=== PATIENT | female | born 1965 | race Caucasian/White ===

== ENCOUNTER 2025-06-23 05:45 | Day surgery (SDC) | payer OTHER ==
[2025-06-22 11:28] LABS: Sqamous Epithelial None Seen /HPF (None Seen); Urine Crystals Unidentified Few /HPF (None Seen); Urine Culture Reflex Order REFLEXED; Urine Microscopic Reflex YN ORDER UMIC; Urine Yeast (Budding) Occasional /HPF (None Seen)
[2025-06-23] MEDS ORDERED: MAGNESIUM SULFATE 1 gm IVPB 1 GM/100 ML BAG IV ONE (06:23)
[2025-06-23] MEDS ORDERED: DEXMEDETOMIDINE HCL 200 MCG/2 ML VIAL ONE (06:23)
[2025-06-23] MEDS ORDERED: MORPHINE SULFATE/PF 1 MG/ML (10 ML AMP) ONE (06:23)
[2025-06-23] MEDS ORDERED: BUPIVACAINE 0.75% (PF) 2 ML SP ONE (06:23)
[2025-06-23] MEDS ORDERED: KETOROLAC 30 MG/ML INJ ONE (06:24)
[2025-06-23] MEDS: TRANEXAMIC ACID 1,000 MG/10 ML VIAL IV ONE (06:24)
[2025-06-23] MEDS ORDERED: KETAMINE HCL IN 0.9 % NACL 50 MG/5 ML SYRINGE IV ONE (06:24)
[2025-06-23] MEDS ORDERED: ONDANSETRON 4 MG/2 ML VIAL ONE (06:24)
[2025-06-23] MEDS ORDERED: LIDOCAINE 2% MPF 5 ML VIAL ONE ×3 (06:24→07:33)
[2025-06-23] MEDS ORDERED: FENTANYL CITR 100 MCG/2 ML ONE (06:24)
[2025-06-23] MEDS ORDERED: MIDAZOLAM HCL 2 MG/2 ML INJ ONE ×2 (06:24→07:01)
[2025-06-23] MEDS ORDERED: LIDOCAINE 1% MPF 5 ML VIAL ONE (06:24)
[2025-06-23] MEDS ORDERED: EPINEPHRINE 1 MG/ML VIAL ONE (06:25)
[2025-06-23] MEDS: NA CHLORIDE 0.9% 1,000 ML ONE (06:25)
[2025-06-23] MEDS: Ringers Lactate 1,000 ML IV ONE ×2 (06:34→08:00)
[2025-06-23] MEDS: GABAPENTIN 100 MG CAP ONE (06:39)
[2025-06-23] MEDS: CELECOXIB 100 MG CAPSULE ONE (06:39)
[2025-06-23] MEDS: Oxycodone HCl/Acetaminophen 5/325 MG TAB ONE (06:39)
[2025-06-23] MEDS: ACETAMINOPHEN 500 MG TAB ONE (06:39)
[2025-06-23] MEDS ORDERED: NS 0.9% VIAL 10 ML ONE ×2 (06:42→08:14)
[2025-06-23] MEDS ORDERED: Phenylephrine HCl 10 MG/ML 1 ML VIAL ONE (06:44)
[2025-06-23] MEDS: CEFAZOLIN SODIUM 2 GM/VIAL ONE (06:58)
[2025-06-23] MEDS ORDERED: NS 0.9% VIAL 20 ML ONE (07:37)
--- NOTE | 2025-06-23 09:20 | P.BOP ---
Preoperative diagnosis: left hip arthritis Postoperative diagnosis: same Primary procedure: left kiki Estimated blood loss: 100ccs Anesthesia: General Transferred to: Recovery Room Condition: Good
[2025-06-23] MEDS ORDERED: ONDANSETRON 4 MG/2 ML VIAL IV PRN (09:21)
[2025-06-23] MEDS ORDERED: DOCUSATE NA 100 MG CAP PO PRN (09:21)
[2025-06-23] MEDS ORDERED: METOCLOPRAMIDE 10 MG/2mL INJ IV PRN (09:57)
[2025-06-23 10:18] LABS: Hematocrit 33.4 % (36.0-45.0); Hemoglobin 11.7 g/dL (12.0-15.0)
[2025-06-23 11:16] VITALS: BMI 24.3
--- NOTE | 2025-06-23 11:31 | RAD REPORT ---
EXAMINATION: Hip Left 1 View CLINICAL INDICATION: Female, 59 years old. HS MAIN LT TOTAL HIP TECHNIQUE: 1 view radiograph of the left hip were obtained. COMPARISON: No prior exam. FINDINGS: No evidence of fracture or dislocation. Operative changes of left hip arthroplasty. Acetabu lar and femoral stem components in place. Other metallic objects in the field limits evaluation. Alignment is otherwise unremarkable. IMPRESSION: Satisfactory intraoperative appearance of the left hip arthroplasty acetabular and femoral stem compo nents.
--- NOTE | 2025-06-23 15:46 | OP ---
Date of Procedure: 06/23/2025 Surgeon: Wang Blake MD Preoperative Diagnosis: Left hip severe arthritis. Postoperative Diagnosis: Left hip severe arthritis. Procedure: Left total hip arthroplasty using the Shruthi system. Estimated Blood Loss: 100 cc. Complications: There were no complications. Indications For Operation: Ms. Weiss is a 59-year-old female who has debilitating pain related to her left hip. She walks with severe antalgia and assistive device. Conservative measures have not b een helpful and risks, benefits, and alternatives to different methods of treating this were discusse d with the patient. She selects total hip arthroplasty and the specific risks associated with this h ave been discussed with her as well. She says she understands things as presented and wishes to proc eed. Description Of Procedure: The patient was taken to the operating room, placed in the supine position . General anesthesia was easily obtained by Anesthesia staff. Following this, she was rolled right side down and appropriately positioned using hip positioners and an axillary roll was used. Followin g this, her left lower extremity was then prepped and draped in usual sterile fashion for procedure. A standard posterolateral incision was taken down carefully through skin and soft tissues. Meticulo us hemostasis being maintained using Bovie electrocautery. There was a layer of adipose tissue, whic h was gently divided and the fascia was encountered. A small stab wound was made in the fascia, and the gluteal tendon was palpated to ensure the correct position. Following this, the fascial incision was then taken up until near the tip of the greater trochanter, where gluteus mary muscles were e ncountered. These were then spread using finger pressure. Sciatic nerve was palpated and protected as the Charnley was placed. The external rotators and capsule were then removed from the posterior a spect of the hip and tagged for later repair. The hip itself was examined and there were found to be loose bodies within the joint, which were removed and the hip was dislocated. It was found to be ba re in several areas and definitely abnormally shaped. A standard neck cut was then performed and the head was removed and sized using ring gauges. Attention was then turned to the acetabulum. The staci tabulum does have a significant amount of soft tissue, which was cleared. This followed by clearing of the labrum. There does appear to be an anterior inferior osteophyte, which was seen. After this, it was then reamed in a standard fashion to a size 51. Size 52 cup appeared to be appropriate. It was then placed in a standard fashion. Attention was then turned to the femur, and box printer was us ed to lateralize. The canal finding reamer was used. It was then broached up to a size 2. Size 2 a ppeared to be fairly tight, and she does have quite thick cortical bone. Decision was made to take a n x-ray at this time, which revealed that the cup appeared to be in appropriate position, but the emely m may be slightly undersized. Decision was made to broach this out to a 3, which was then done. The liner was then placed in the acetabulum in a standard fashion, and the final stem being a size 3 was then placed. After this, it was then trialed with a standard and appeared to be very stable to full flexion, adduction, and internal rotation to at least 45-60 degrees. Did have full extension. Did not feel that it was too long. This was then replaced with the final standard ball, which was gently tapped in place. It was then relocated and stable in above areas. After this, the wound was copiou sly irrigated. The external rotators and capsule were then repaired back to the greater trochanter v ia bone tunnels. It was again irrigated and the fascia was closed in a watertight fashion using heav y Vicryl sutures. It was again irrigated. The skin was closed using Vicryl sutures followed by stap les. The patient was then placed in an Aquacel dressing, awakened, and taken to the recovery room in good condition. There were no complications. SE/MODL Voice ID: [id number] Report ID: [id number]
[2025-06-23] MEDS: CEFAZOLIN 1 GM in NA CHLORIDE 0.9% 50 ML IVPB SCH (16:46)
[2025-06-23 17:50] LABS: Hematocrit 35.5 % (36.0-45.0); Hemoglobin 12.1 g/dL (12.0-15.0)
[2025-06-23] MEDS: HYDROCODONE/APAP 7.5/325 MG TAB PO PRN (19:49)
[2025-06-23] MEDS: DIPHENHYDRAMINE 50 MG/ML VIAL IV PRN (22:48)
[2025-06-24 07:21] LABS: Hematocrit 28.6 % (36.0-45.0); Hemoglobin 9.6 g/dL (12.0-15.0)
[2025-06-24] MEDS: ENOXAPARIN 40 MG/0.4 ML SQ SCH (08:20)
[2025-06-24] MEDS: NA CHLORIDE 0.9% 1,000 ML IV ONE (09:28)
[2025-06-24] MEDS ORDERED: NA CHLORIDE 0.9% 1,000 ML ONE (09:28)
[2025-06-24 10:13] LABS: Hematocrit 26.2 % (36.0-45.0); Hemoglobin 8.9 g/dL (12.0-15.0)
[2025-06-24] MEDS: MIDODRINE HCL 5 MG TABLET PO SCH (11:33)
--- NOTE | 2025-06-24 13:19 | P.CNS ---
History of Present Illness: Tawny Weiss is a 59 year old female with Pmhx hypothyroidism, Sinus bradycardia, and hyperlipidemia who has been admitted to the hospital for Left total hip arthroplasty performed on 06/23/[address] Blake. On morning rounds, she had worked with Physical Therapy and became hypotensive with nausea and lightheadedness. H/H decreased on repeat labs but dressing remains CDI, one liter NS bolus given and blood pressure with slight improvement low. Will repeat H/H in the morning, started on midodrine TID and will continue to evaluate. Dr. Vences was consulted for medical management. Allergies No Known Allergies Allergy (Unverified 06/19/25 12:30) Home Medications: Aspirin/Caffeine [Bc Pain Relief Powder Packet] 1 packet PO PRN PRN 06/19/25 Calcium Carbonate [Calcium] 1 tab PO DAILY 06/19/25 Levothyroxine [Synthroid*] 25 mcg PO DAILY 06/19/25 Rosuvastatin [Crestor*] 30 mg PO DAILY 06/19/25 Vitamin D [Drisdol*] 1.25 mg PO DAILY 06/19/25 - Past Medical/Surgical History Diabetic: No -: hypothyroidism -: hyperlipidemia -: sinus bradycardia -: R wrist surgery x4 -: R thumb surgery x1 -: L wrist surgery x1 -: umbilical hernia repair x2 -: cholecystectomy -: L knee meniscus repair x1 -: spinal repair of 2 herniated discs -: L hip Arthroplasty (current) - Social History Alcohol use: No CD- Drugs: No Caffeine use: No Place of Residence: Home Review of Systems 10-point ROS is otherwise unremarkable Physical Examination Temp Pulse Resp BP Pulse Ox 97.9 F 68 16 113/53 L 98 06/24/25 12:00 06/24/25 12:00 06/24/25 12:00 06/24/25 12:06/24/25 12:00 General: Alert, In no apparent distress, Oriented x3 HEENT: Atraumatic, Normocephalic, PERRLA Neck: Supple, 2+ carotid pulse no bruit Respiratory: Clear to auscultation bilaterally, Normal air movement Cardiovascular: Normal pulses, Regular rate/rhythm, Normal S1 S2 Capillary refill: <2 Seconds Gastrointestinal: Normal bowel sounds, Soft and benign Musculoskeletal: Other (Left hip tenderness, Dressing CDI) Integumentary: Other (Surgical incision to left hip) Laboratory Data (last 24 hrs) 06/24/25 06/24/25 06/23/25 10:07 06:57 17:32 Hgb 8.9 L 9.6 L D 12.1 Hct 26.2 L 28.6 L 35.5 L Conclusions/Impression: Assessment and Plan Left total hip arthroplasty Arthritis -Dr. Blake -Pain control -PT -Perioperative antibiotics per Dr. Blake Hypotensive suspect 2/2 blood loss -1 LNS bolus given -Midodrine TID - monitor H/H closely Blood loss anemia -monitor H/H closely -Blood transfusion PRN -discussed this in detail -Type and screen Hypothyroidism HLD Sinus bradycardia -continue home medications as appropriate -Continuous telemetry DVT ppx SCD Full code LOS 2 days Time Spent Managing Pts care (In Minutes): 60
[2025-06-24 19:33] LABS: Absolute Lymphocytes (CBC) 2.4 K/uL (0.7-4.9); Hematocrit 23.3 % (36.0-45.0); Hemoglobin 8.0 g/dL (12.0-15.0); MCH 28.7 pg (27.0-35.0); MCHC 34.4 g/dL (32.0-36.0); MCV 83.4 fL (80-100); MPV 8.5 fL (7.6-11.3); Nucleated RBC Absolute Count 0.0 (0-0); Nucleated Red Blood Cells % 0.1 % (0-0); RBC Red Blood Cell Count 2.79 M/uL (3.86-4.86); White Blood Count 12.10 thou/uL (4.3-10.9)
[2025-06-25] MEDS: LEVOTHYROXINE SOD 0.025 MG TAB PO SCH (05:30)
[2025-06-25 05:43] LABS: Absolute Lymphocytes (CBC) 2.6 K/uL (0.7-4.9); Hematocrit 23.5 % (36.0-45.0); Hemoglobin 8.1 g/dL (12.0-15.0); MCH 29.0 pg (27.0-35.0); MCHC 34.6 g/dL (32.0-36.0); MCV 83.9 fL (80-100); MPV 8.5 fL (7.6-11.3); Nucleated RBC Absolute Count 0.0 (0-0); Nucleated Red Blood Cells % 0.1 % (0-0); RBC Red Blood Cell Count 2.80 M/uL (3.86-4.86); White Blood Count 9.30 thou/uL (4.3-10.9)
[2025-06-25 06:06] LABS: PT Prothrombin Time 12.0 SECONDS (10-13.0); PTT, Activated Partial Thromb 28.3 SECONDS (27.2-37.4); Protime INR 1.06
[2025-06-25 06:42] LABS: ALT/SGPT 21.0 U/L (13-56); AST/SGOT 20.0 U/L (15-37); Albumin 2.6 g/dL (3.4-5.0); Albumin/Globulin Ratio 1.1 (1.1-1.8); Alkaline Phosphatase 79.0 U/L (45-117); Anion Gap 5.5 mEq/L (5.0-15.0); BUN Blood Urea Nitrogen 18.0 mg/dL (7-18); Globulin 2.4 g/dL (2.3-3.5); Glucose Level 97.0 mg/dL (74-106); Iron 20.0 ug/dL (50-170); Magnesium 2.1 mg/dL (1.6-2.4); Potassium 4.5 mEq/L (3.5-5.1)
[2025-06-25 07:10] LABS: Percent Reticulocyte Count 1.29 % (0.4-2.05)
[2025-06-25] MEDS: ROSUVASTATIN 10 MG TAB PO SCH (09:09)
[2025-06-25] MEDS: CALCIUM CARBONATE 500 MG TAB PO SCH (09:09)
[2025-06-25 09:21] VITALS: O2SAT 97
[2025-06-25] MEDS: CYANOCOBALAMIN 1000MCG/ML INJ IM ONE (11:43)
[2025-06-25 12:33] VITALS: BP 129/60; TEMP 98.3
--- NOTE | 2025-06-25 14:19 | P.DS ---
Discharge Date: 06/25/25 Disposition: ROUTINE DISCHARGE Discharge Condition: GOOD Brief History of Present Illness: Diagnosis Left total hip arthroplasty Arthritis Hypotensive suspect 2/2 blood loss Blood loss anemia Iron deficiency anemia suspect pernicious anemia Hypothyroidism HLD Sinus bradycardia Consult note 06/24/25 Tawny Weiss is a 59 year old female with Pmhx hypothyroidism, Sinus bradycardia, and hyperlipidemia who has been admitted to the hospital for Left total hip arthroplasty performed on 06/23/[address] Blake. On morning rounds, she had worked with Physical Therapy and became hypotensive with nausea and lightheadedness. H/H decreased on repeat labs but dressing remains CDI, one liter NS bolus given and blood pressure with slight improvement low. Will repeat H/H in the morning, started on midodrine TID and will continue to evaluate. Dr. Vences was consulted for medical management. Hospital Course: Tawny was admitted for left total hip arthroplasty with Dr. Blake. Hospitalist team was consulted for medical management. She experienced hypotension and anemia which has been identified as blood loss anemia, iron deficiency anemia, suspected pernicious anemia. Hypotension was regulated with IV fluids and midodrine. Vitamin B and iron were given this admission. Dr. Blake discharged on 06/25 and Martin, ferrous gluconate, midodrine, vitamin B12 were prescribed. She will need to follow-up with Dr. Blake in his office. Tawny was seen on morning rounds, hemodynamically stable, tolerated ambulation with physical therapy, and ready for discharge home with family support.social work has arranged for her to continue physical therapy with [facility] outpatient [facility] services. General: Alert and Oriented x3, NAD HEENT: Atraumatic, Normocephalic, PERRLA Neck: Supple, 2+ carotid pulse no bruit Respiratory: Clear to auscultation bilaterally, Normal air movement Cardiovascular: Normal pulses, RRR, Normal S1 S2 Gastrointestinal: Normal bowel sounds, Soft and benign Musculoskeletal: Other (Left hip tenderness, Dressing CDI), 2+ peripheral pulses Integumentary: Other (Surgical incision to left hip) Vital Signs/Physical Exam: Temp Pulse Resp BP Pulse Ox 98.3 F 70 16 129/60 99 06/25/25 12:06/25/25 12:06/25/25 12:06/25/25 12:00 06/25/25 12:00 Laboratory Data at Discharge: WBC 9.30 thou/uL (4.3-10.9) 06/25/25 05:25 Hgb 8.1 g/dL (12.0-15.0) L 06/25/25 05:25 Hct 23.5 % (36.0-45.0) L 06/25/25 05:25 Plt Count 200 thou/uL (152-406) 06/25/25 05:25 PT 12.0 SECONDS (10-13.0) 06/25/25 05:25 INR 1.06 06/25/25 05:25 APTT 28.3 SECONDS (27.2-37.4) 06/25/25 05:25 Sodium 145 mEq/L (136-145) 06/25/25 05:25 Potassium 4.5 mEq/L (3.5-5.1) 06/25/25 05:25 BUN 18 mg/dL (7-18) 06/25/25 05:25 Creatinine 0.91 mg/dL (0.55-1.02) 06/25/25 05:25 Glucose 97 mg/dL (74-106) 06/25/25 05:25 Magnesium 2.1 mg/dL (1.6-2.4) 06/25/25 05:25 Total Bilirubin 0.2 mg/dL (0.2-1.0) 06/25/25 05:25 AST 20 U/L (15-37) 06/25/25 05:25 ALT 21 U/L (13-56) 06/25/25 05:25 Alkaline Phosphatase 79 U/L (45-117) 06/25/25 05:25 Home Medications: Aspirin/Caffeine [Bc Pain Relief Powder Packet] 1 packet PO PRN PRN 06/19/25 Calcium Carbonate [Calcium] 1 tab PO DAILY 06/19/25 Levothyroxine [Synthroid*] 25 mcg PO DAILY 06/19/25 Rosuvastatin [Crestor*] 30 mg PO DAILY 06/19/25 Vitamin D [Drisdol*] 1.25 mg PO DAILY 06/19/25 Cyanocobalamin/Cobamamide [Vitamin B-12 5,000 Mcg Tab Sl] 1 each SL DAILY #30 tab 06/25/25 Ferrous Gluconate [Fergon] 240 mg PO BID #60 tablet 06/25/25 Hydrocodone 7.5/APAP 325 [Martin 7.5/325 mg*] 1 tab PO Q6HP PRN #30 tab 06/25/25 Midodrine HCl [Proamatine*] 5 mg PO TID #30 tab 06/25/25 New Medications: Hydrocodone 7.5/APAP 325 [Martin 7.5/325 mg*] 1 tab PO Q6HP PRN #30 tab PRN Reason: Pain Scale 8-10 (Severe) Ferrous Gluconate [Fergon] 240 mg PO BID #60 tablet Midodrine HCl [Proamatine*] 5 mg PO TID #30 tab Cyanocobalamin/Cobamamide [Vitamin B-12 5,000 Mcg Tab Sl] 1 each SL DAILY #30 tab Physician Discharge Instructions: -DC IV and DC home -Follow-up with PCP in 1 to 2 weeks -Follow-up with orthopedics in 1 to 2 weeks -Follow-up with gastroenterology in 2 to 4 weeks to workup B12 deficiency with anemia -Please call Dr. Vences at [phone] if any questions regarding hospital stay -Please call nursing station at [phone] if any nursing or medication questions -Return to the emergency room if symptoms worsen -- Please get labs to check B12 level, iron level, CBC in 2 to 4 weeks Diet: Regular Activity: Fall precautions Followup: Wang Blake MD [ACTIVE - CAN ADMIT] - 1-2 Weeks Denisha Phillips FNP [Primary Care Provider] - If your Condition Changes
[2025-06-26] MEDS ORDERED: SOD FERRIC GLUC COMPLX/SUCROSE 125 MG in NA CHLORIDE 0.9% 100 ML IV SCH (09:00)
== END 2025-06-25 14:42 | disposition home or self-care (01) ==
LOC: OR 05:45 → 2ND 09:21 → OR 06-25 14:42
PROVIDERS: ATTEND Orthopaedic Surgery
PROC: 0SRB0JA Replacement of Left Hip Joint with Synthetic Substitute, Uncemented, Open Approach (ICD-10-PCS; principal; 2025-06-23 07:00)
DX: M16.12 Unilateral primary osteoarthritis, left hip (principal); I95.81 Postprocedural hypotension; R11.0 Nausea; R42 Dizziness and giddiness; D50.0 Iron deficiency anemia secondary to blood loss (chronic); E03.9 Hypothyroidism, unspecified; R00.1 Bradycardia, unspecified; E78.5 Hyperlipidemia, unspecified
CPT/HCPCS: 27130; 93005; 87088; 85025; 81001; 87086; 36415 ×2; 83735; 85610; 85044; 88304; 88311; 85730 ×2; 85018 ×2; 85014 ×2; 82607; 83540; 80053; 73501; 97116 ×2; 97161; 97530 ×2; J3490; C1776 ×5; J3420; J3475; A4216 ×3; J2704; J1200; J2003 ×4; J2371; J2250; J3010; J1100; J0171; J2405; J7120 ×2; J7030; J0690; 88305

== ENCOUNTER 2025-07-03 15:23 | Emergency (ER) | payer OTHER ==
--- OUTSIDE RECORDS SUMMARY | 2025-07-03 15:26 | XMS REPORT | Continuity of Care Document ---
Author Name Unknown Address [address] [facility] [place] [address] Organization [facility] [place] Address [address] [facility] [address] [place] [address] Care Team Providers Care Chore Tender Name Role Phone COREEN JIMENEZ ASA Primary Care Physician Unava ilable RADIOLOGY Attending Clinician Unavailable Lewis Rodriguez MD Attending Clinician [phone] LEWIS RODRIGUEZ Attending Clinician Unavaildenny e LEWIS RODRIGUEZ Attending Clinician Unavaildenny e Doctor Unassigned, [place] Attending Clinician U navailable Emily Negrete Attending Clinician [phone] Rebecca Hernadez MD Attending Clinician Payers Payer Name Policy Type Policy Number Effective Date Expirati on Date Source [facility] [id number] 2025 00:00:00 Problems Condition Name Condition Details Condition Category Status Onset Date Resolution Date Last Treatment Date Treating Clinician Comments Source Acute vaginitis Acute Vaginitis Problem Active 6 00:00: 00 [facility] Genital herpes simplex Genital Herpes Simplex Problem Active 04-16 00:00: 00 [facility] Trichomona l vaginitis Trichomona l Vaginitis Problem Active 04-16 00:00: 00 [facility] Essential hypertensi on Essential Hypertensi on Problem Active 4-04 00:00: 00 [facility] Screening for malignant neoplasm of colon Screening for Malignant Neoplasm of Colon Problem Active 2020-11 00:00: 00 [facility] Menopause present Menopause Present Problem Active 2020-11 00:00: 00 [facility] Gynecologi amparo examinatio n abnormal Gynecologi amparo Examinatio n Abnormal Problem Active 2020-11 00:00: 00 [facility] Postcoital bleeding Postcoital Bleeding Problem Active 2020-11 00:00: 00 [facility] Atrophic vaginitis Atrophic Vaginitis Problem Active 2020-11 00:00: 00 [facility] Screening mammograph y Screening Mammograph y Problem Active 2020-11 00:00: 00 [facility] Recurrent ventral hernia Recurrent ventral hernia Disease Active 05-16 00:00: 00 Overview: Formattin g of this note might be different from the original. Added automatic ally from request for surgery [id number] [facility] Allergies, Adverse Reactions, Alerts Allergy Name Allergy Type Status Severity Reaction(s) Onset Date Inactive Date Treating Clinician Comments Source Penicill ins Propensi ty to adverse reaction s Active Unknown - See comments 07-03 00:00: 00 Family history of allergic to the medicine [facility] Prometha zine Hcl Propensi ty to adverse reaction s Active Nausea and/or Vomiting 07-03 00:00: 00 [facility] Penicill ins Propensi ty to adverse reaction s Active Unknown - See comments 07-03 00:00: 00 Family history of allergic to the medicine [facility] PENICILL INS Drug Class Active Unknown-Cmnt 07-03 00:00: 00 [facility] PROMETHA ZINE HCL DRUG INGREDI Active N/V 07-03 00:00: 00 [facility] PROMETHA ZINE HCL Allergy to substanc e Active Vomiting [facility] Social History Social Habit Start Date Stop Date Quantity Comments Source History SDOH Alcohol Frequency [facility] History SDOH [facility] SDOH Alcohol Binge [facility] History of tobacco use Passive smoker [facility] History of Social function 2025-03-12 00:00:00 2025-03-12 00:00:00 [facility] Alcohol intake 2019-07-07 00:00:00 2019-07-07 00:00:00 Current drinker of alcohol (finding) [facility] Alcoholic beverage intake 2019-07-07 00:00:00 2019-07-07 00:00:00 Current drinker of alcohol (finding) [facility] Tobacco use and exposure 2019-01-01 00:00:00 2019-01-01 00:00:00 Smokeless tobacco non-user [facility] Alcohol Comment 2019-01-01 00:00:00 2019-01-01 00:00:00 rarely [facility] Sex assigned at 1965 00:00:00 1965 00:00:00 [facility] Smoking Status Start Date Stop Date Source Never Smoker [facility] Medical Medications Ordered Medication Name Filled Medication Name Start Date Stop Date Current Medication? Ordering Clinician Indication Dosage Frequency Signature (SIG) Comments Components Source HYDROcodone -acetaminop hen (NORCO) 5-325 mg tablet 05-26 00:00: 00 Yes [id number] 1{tbl} Take 1 tablet by mouth every 12 (twelve) hours as needed for Pain (scale 4-6) or Pain (scale 7-10). [facility] ibuprofen 800 mg tablet 05-26 00:00: 00 Yes [id number] 800mg Take 1 tablet by mouth every 8 (eight) hours as needed for Pain (scale 1-3) or Pain (scale 4-6) (With meals). [facility] traMADOL 50 mg tablet 05-23 00:00: 00 Yes [id number] 50mg Take 1 tablet by mouth every 6 (six) hours as needed for Pain (scale 4-6). [facility] ondansetron 4 mg tablet 04-30 00:00: 00 Yes [id number] 4mg Take 1 tablet by mouth every 8 (eight) hours as needed for Nausea and Vomiting (N/V). [facility] diclofenac sodium diclofenac sodium No diclofenac sodium [facility] Flagyl 500 mg tablet Take 1 tablet every 12 hours by oral route with meals for 14 days. Flagyl 500 mg tablet Take 1 tablet every 12 hours by oral route with meals for 14 days. No 1 Q12H Flagyl 500 mg tablet Take 1 tablet every 12 hours by oral route with meals for 14 days. [facility] Vital Signs Vital Name Observation Time Observation Value Comments Anayeli pabon Systolic blood pressure 2025-03-12 19:59:00 155 mm[Hg] [facility] Diastolic blood pressure 2025-03-12 19:59:00 80 mm[Hg] [facility] Heart rate 2025-03-12 19:59:00 63 /min Un[facility] Body temperature 2025-03-12 19:58:00 36.89 Tonja [facility] Body height 2025-03-12 19:58:00 162.6 cm [facility] Body weight 2025-03-12 19:58:00 75.841 kg [facility] BMI 2025-03-12 19:58:00 28.70 kg/m2 [facility] BMI (Body Mass Index) 2024-04-08 00:00:00 25 kg/m2 [facility] Height 2024-04-08 00:00:00 66 [in_i] [facility] BP Systolic 2024-04-08 00:00:00 121 mm[Hg] [facility] BP Diastolic 2024-04-08 00:00:00 74 mm[Hg] [facility] Weight 2024-04-08 00:00:00 155 [lb_av] [facility] Systolic blood pressure 2019-07-07 13:53:00 121 mm[Hg] [facility] Diastolic blood pressure 2019-07-07 13:53:00 63 mm[Hg] [facility] Heart rate 2019-07-07 13:53:00 67 /min [facility] Body temperature 2019-07-07 13:53:00 36.28 Tonja [facility] Respiratory rate 2019-07-07 13:53:00 18 /min [facility] Body height 2019-07-07 13:53:00 167.6 cm [facility] Body weight 2019-07-07 13:53:00 69.491 kg [facility] BMI 2019-07-07 13:53:00 24.73 kg/m2 [facility] Procedures Procedure Date / Time Performed Performing Clinician Source US, transvaginal 2024-04-24 00:00:00 [facility] AUTHORIZATION FOR RELEASE OF PHI 2021-02-22 05:01:00 Doctor Unassigned, [place] [facility] Encounters Start Date/Time End Date/Time Encounter Type Admission Type Attending Clinicians Care Facility Care Department Encounter ID Source 2025-05-25 00:00:00 2025-05-25 00:00:00 Outpatient R RADIOLOGY [facility] [id number] [facility] 2025-03-24 00:00:00 2025-03-25 11:46:31 Telephone Lewis Rodriguez [facility] [id number] [id number] [facility] 2025-03-12 14:58:01 2025-03-12 23:59:00 Hospital Encounter O LEWIS RODRIGUEZ [facility] [id number] [id number] [facility] 2025-03-12 15:15:00 2025-03-12 15:32:41 Outpatient R LEWIS RODRIGUEZ C[facility] [id number] [facility] 2025-03-12 15:15:00 2025-03-12 15:32:41 Office Visit Lewis Rodriguez [facility] [id number] [id number] [facility] 2024-04-24 00:00:00 2024-04-24 00:00:00 Ese Warner MD: [address], [place] [address], [place] [address] , Ph. [facility] - GC_GCBZW_Blanca Carranza* [id number] [facility] 2024-04-09 00:00:00 2024-04-09 00:00:00 PASQUALE Girard: [address], [address], [place] [address] , Ph. [facility] - GC_GCBZW_Blanca Carranza* [id number] [facility] 2024-04-08 00:00:00 2024-04-08 00:00:00 PASQUALE Girard: [address], [address], [place] [address] , Ph. [facility] - GC_GCBZW_Blanca Carranza* [id number] [facility] 2021-02-22 00:00:00 2021-02-22 00:00:00 Orders Only Doctor Unassigned, [place] [facility] .840.114 [id number] [id number] [id number] [facility] 2021-02-17 00:00:00 2021-02-17 00:00:00 Patient Secure Msg Emily Nichols [facility] ONE .840.114 350.1.13.10 [id number] [id number] [facility] 2019-07-07 08:47:00 2019-07-07 09:08:33 Office Visit Rebecca Hernadez [facility] Building .840.114 [id number] [id number] [id number] [facility] 2019-05-27 00:00:00 2019-05-27 00:00:00 Patient Secure Msg Doctor Unassigned, [place] [facility] 1..114 [id number] [id number] [id number] [facility] Results Test Description Test Time Test Comments Results Result Co mments Source [facility] disease [id number] 12:38:00Abnormal [facility], LB + [id number] 00:00:00* Test Item Value Reference Range Interpretation Comme nts LMP date: (test code = LMP date:) 11/19/2009 Pap, liquid-based (test code = Pap, liquid-based) ASC-H nilm A source (liquid-based cytology): (test code = source (liquid-based cytology):) CERVICAL (WHICH INCLUDES ENDOCERVICAL) HPV high risk DNA (non 16/18) (test code = HPV high risk DNA (non 16/18)) ALTERNATE TEST PERFORMED not detected HPV high risk DNA type 16 (test code = HPV high risk DNA type 16) ALTERNATE TEST PERFORMED not detected HPV high risk DNA type 18 (test code = HPV high risk DNA type 18) ALTERNATE TEST PERFORMED not detected [facility] Medical Notes Date/Time Note Provider Source 2025-03-25 09:52:50 Spoke with the patient; informed her that, due to her HMO plan, she will need to obtain a referral from her primary care physician. The patient verbalized understanding. Please close encounter. Vineet Wayne [facility] 2025-03-24 13:13:09 Can someone assist with sooner appt with one of our local apple picking supervisor INT Carlene Muñoz MA [facility] 2025-03-24 13:01:49 Tawny Mcneill is a 59 year old female Patient states that she was referred to Cardiology by Dr. Rodriguez before she can go through with surgery. Patient states the soonest appointment for cardiology isn't until the end of April and the patient is in sever pain she states. Patient is requesting a callback regarding this matter at [phone] Thank You! Ramya Ramirez [facility]
[2025-07-03] MEDS ORDERED: ONDANSETRON 4 MG/2 ML VIAL ONE (15:51)
[2025-07-03] MEDS ORDERED: MORPHINE 4 MG/ML SYR ONE (15:52)
[2025-07-03] MEDS ORDERED: NA CHLORIDE 0.9% 500 ML ONE (15:52)
[2025-07-03 16:08] LABS: Absolute Lymphocytes (CBC) 1.7 K/uL (0.7-4.9); Hematocrit 27.3 % (36.0-45.0); Hemoglobin 9.2 g/dL (12.0-15.0); MCH 29.1 pg (27.0-35.0); MCHC 33.8 g/dL (32.0-36.0); MCV 86.0 fL (80-100); MPV 7.1 fL (7.6-11.3); Nucleated RBC Absolute Count 0.0 (0-0); Nucleated Red Blood Cells % 0.1 % (0-0); RBC Red Blood Cell Count 3.17 M/uL (3.86-4.86); White Blood Count 8.50 thou/uL (4.3-10.9)
[2025-07-03 16:26] LABS: ALT/SGPT 26.0 U/L (13-56); AST/SGOT 21.0 U/L (15-37); Albumin 3.5 g/dL (3.4-5.0); Albumin/Globulin Ratio 1.3 (1.1-1.8); Alkaline Phosphatase 100.0 U/L (45-117); Anion Gap 9.7 mEq/L (5.0-15.0); BUN Blood Urea Nitrogen 16.0 mg/dL (7-18); Globulin 2.8 g/dL (2.3-3.5); Glucose Level 99.0 mg/dL (74-106); Potassium 3.7 mEq/L (3.5-5.1)
--- NOTE | 2025-07-03 16:26 | RAD REPORT ---
Exam:Pelvis CLINICAL HISTORY: Pelvic pain FINDINGS: No fracture or dislocation seen Visualized left hip prosthesis in good position. No evidence of loosening.
--- NOTE | 2025-07-03 16:32 | EDPHYS ---
Physician Documentation [facility] Name: Tawny Weiss Age: 59 yrs Sex: Female : 1965 Arrival Date: 07/03/2025 Time: 15:23 Bed 6 Private MD: NAM Physician Dinh Loza HPI: 07/03 16:15 This 59 yrs old Female presents to ER via Wheelchair with complaints of Hip aurora Pain. 16:15 The patient or guardian reports decreased range of motion, pain. that occurred at home, aurora sustained from sp hip replace. The complaints affect the right hip and right upper thigh. Onset: The symptoms/episode began/occurred 1 day(s) ago. Modifying factors: The symptoms are alleviated by remaining still, the symptoms are aggravated by nothing. Associated signs and symptoms: Loss of consciousness: the patient experienced no loss of consciousness. Severity of symptoms: At their worst the symptoms were mild, in the emergency department the symptoms are unchanged. The patient has not experienced similar symptoms in the past. Historical: - Allergies: 15:31 No Known Allergies; ll1 - PMHx: 15:31 Hypothyroidism; Hypercholesterolemia; Hypertensive disorder; ll1 - PSHx: 15:31 hip replacement; back surgery; wrist surgery x 4; ll1 - Immunization history:: Adult Immunizations up to date. - Social history:: Smoking status: Patient denies any tobacco usage or history of. - Hospitalizations: : No recent hospitalization is reported. ROS: 16:15 Constitutional: Negative for fever, chills, and weight loss, Eyes: Negative for injury, aurora pain, redness, and discharge, ENT: Negative for injury, pain, and discharge, Neck: Negative for injury, pain, and swelling, Cardiovascular: Negative for chest pain, palpitations, and edema, Respiratory: Negative for shortness of breath, cough, wheezing, and pleuritic chest pain, Abdomen/GI: Negative for abdominal pain, nausea, vomiting, diarrhea, and constipation, Back: Negative for injury and pain, : Negative for injury, bleeding, discharge, and swelling, Skin: Negative for injury, rash, and discoloration, Neuro: Negative for headache, weakness, numbness, tingling, and seizure, 16:15 MS/extremity: Positive for pain, tenderness, of the left hip, Exam: 16:15 Constitutional: This is a well developed, well nourished patient who is awake, alert, aurora and in no acute distress. Head/Face: Normocephalic, atraumatic. Eyes: Pupils equal round and reactive to light, extra-ocular motions intact. Lids and lashes normal. Conjunctiva and sclera are non-icteric and not injected. Cornea within normal limits. Periorbital areas with no swelling, redness, or edema. ENT: Nares patent. No nasal discharge, no septal abnormalities noted. Tympanic membranes are normal and external auditory canals are clear. Oropharynx with no redness, swelling, or masses, exudates, or evidence of obstruction, uvula midline. Mucous membranes moist. Neck: Trachea midline, no thyromegaly or masses palpated, and no cervical lymphadenopathy. Supple, full range of motion without nuchal rigidity, or vertebral point tenderness. No Meningismus. Chest/axilla: Normal chest wall appearance and motion. Nontender with no deformity. No lesions are appreciated. Cardiovascular: Regular rate and rhythm with a normal S1 and S2. No gallops, murmurs, or rubs. Normal PMI, no JVD. No pulse deficits. Respiratory: Lungs have equal breath sounds bilaterally, clear to auscultation and percussion. No rales, rhonchi or wheezes noted. No increased work of breathing, no retractions or nasal flaring. Abdomen/GI: Soft, non-tender, with normal bowel sounds. No distension or tympany. No guarding or rebound. No evidence of tenderness throughout. Back: No spinal tenderness. No costovertebral tenderness. Full range of motion. Female : Normal external genitalia. Skin: Warm, dry with normal turgor. Normal color with no rashes, no lesions, and no evidence of cellulitis. Neuro: Awake and alert, GCS 15, oriented to person, place, time, and situation. Cranial nerves II-XII grossly intact. Motor strength 5/5 in all extremities. Sensory grossly intact. Cerebellar exam normal. Normal gait. Psych: Awake, alert, with orientation to person, place and time. Behavior, mood, and affect are within normal limits. 16:15 Musculoskeletal/extremity: ROM: limited active range of motion, limited passive range of motion, limited active range of motion due to pain, limited passive range of motion due to pain, Circulation is intact in all extremities. Sensation intact. Compartment Syndrome exam of affected extremity: is normal. Weight bearing: able to fully bear weight, DVT Exam: negative Homans' sign noted on exam, no appreciated bluish discoloration, no erythema, no increased warmth, pain, swelling, tenderness, Vital Signs: 15:33 BP 137 / 121; Pulse 70; Resp 16; Temp 97.4; Pulse Ox 100% on R/A; Weight 69.85 kg; ll1 Height 5 ft. 4 in. ; Pain 10/10; 15:46 BP 142 / 58; Pulse 65; Resp 18; Pulse Ox 100% on R/A; ap3 17:32 BP 116 / 52; Pulse 66; Resp 18; Temp 98.2; Pulse Ox 97% on R/A; nh2 15:33 Body Mass Index 26.43 (69.85 kg, 162.56 cm) ll1 15:33 Pain Scale: Adult ll1 Yao Coma Score: 16:15 Eye Response: spontaneous(4). Motor Response: obeys commands(6). Verbal Response: aurora oriented(5). Total: 15. MDM: 15:35 Medical Screening Exam initiated aurora 16:29 Differential diagnosis: hip fracture, intertrochanteric fracture, femoral neck aurora fracture, femoral shaft fracture, bursitis, arthritis, strain. Data reviewed: vital signs, nurses notes, lab test result(s), EKG. Consideration of Admission/Observation Escalation of care including admission/observation considered. I considered the following discharge prescriptions or medication management in the emergency department Medications were administered in the Emergency Department. See MAR. Independent interpretation of the following test(s) in the Emergency Department X-Ray: My interpretation is left hip x ray. Test considered but Not performed: X-ray: left hip. Care significantly affected by the following chronic conditions: Diabetes, Hypertension, Obesity. 07/03 15:42 Order name: CBC with Diff; Complete Time: 16:48 [facility] 07/03 15:42 Order name: CMP; Complete Time: 16:48 [facility] 07/03 15:42 Order name: Pelvis XRAY; Complete Time: 16:48 [facility] 07/03 15:42 Order name: Hip Left 2 View XRAY [facility] 07/03 15:42 Order name: Femur Left XRAY aurora Administered Medications: 16:02 Drug: Ondansetron IVP 4 mg IVP once; over 2 minutes Route: IVP; Infused Over: 4 mins; aa5 Site: right antecubital; 16:22 Follow up: Response: No adverse reaction aa5 16:03 Drug: NS 0.9% IV 500 ml 500 ml IV at 1 bolus once; to be given as a bolus over 30 aa5 minutes Volume: 500 ml; Route: IV; Rate: 1 bolus; Site: right antecubital; 16:33 Follow up: IV Status: Completed infusion; IV Intake: 500ml aa5 16:03 Drug: morphine IVP or IV 4 mg IVP once over 4 mins Route: IVP; Infused Over: 4 mins; aa5 Site: right antecubital; 16:22 Follow up: Response: No adverse reaction aa5 Disposition Summary: 07/03/25 16:32 Discharge Ordered Notes: Location: Home aurora Problem: new aurora Symptoms: have improved aurora Condition: Stable aurora Diagnosis - Pain in left hip - sp replacement aurora Followup: aurora - With: Private Physician - When: 2 - 3 days - Reason: Recheck today's complaints, Continuance of care, Re-evaluation by your physician Followup: aurora - With: Wang Blake MD - When: 2 - 3 days - Reason: Recheck today's complaints, Re-evaluation by your physician Discharge Instructions: - Discharge Summary Sheet aurora - Musculoskeletal Pain aurora - Hip Pain aurora - Hip Sprain aurora Forms: - Medication Reconciliation Form aurora - Antibiotic Education aurora - Prescription Opioid Use aurora - Patient Portal Instructions aurora - Leadership Thank You Letter aurora Signatures: Dispatcher [employer] Dinh Britton MD MD cha Calderon, Audri RN RN aa5 Julieta Turner RN RN ll1 Corrections: (The following items were deleted from the chart) 15:42 15:42 Pelvis+RAD.RAD.BRZ ordered. EDMS EDMS 15:42 15:42 Hip Left 2 View+RAD.RAD.BRZ ordered. EDMS EDMS 15:42 15:42 Femur Left+RAD.RAD.BRZ ordered. EDMS EDMS
--- NOTE | 2025-07-03 16:32 | ER ---
Nurse's Notes [facility] Name: Tawny Weiss Age: 59 yrs Sex: Female : 1965 Arrival Date: 07/03/2025 Time: 15:23 Bed 6 Private MD: Diagnosis: Pain in left hip-sp replacement Presentation: 07/03 15:33 Chief complaint: Patient states: Aragon a pop, then L hip pain since yesterday. Hip ll1 replacement 06/23. Coronavirus screen: Client denies travel out of the [place] in the last 14 days. At this time, the client does not indicate any symptoms associated with coronavirus-19. Ebola Screen: Patient denies travel to an Ebola-affected area in the 21 days before illness onset. Initial Sepsis Screen: Does the patient meet any 2 criteria? No. Patient's initial sepsis screen is negative. Does the patient have a suspected source of infection? No. Patient's initial sepsis screen is negative. Risk Assessment: Do you want to hurt yourself or someone else? Patient reports no desire to harm self or others. Onset of symptoms was July 02, 2025. 15:33 Method Of Arrival: Wheelchair ll1 15:33 Acuity: ARIANNE 3 ll1 Triage Assessment: 15:33 General: Appears uncomfortable, Behavior is calm, cooperative, appropriate for age. ap3 Pain: Complains of pain in L hip Quality of pain is described as aching. Musculoskeletal: Reports pain in L hip. Historical: - Allergies: 15:31 No Known Allergies; ll1 - PMHx: 15:31 Hypothyroidism; Hypercholesterolemia; Hypertensive disorder; ll1 - PSHx: 15:31 hip replacement; back surgery; wrist surgery x 4; ll1 - Immunization history:: Adult Immunizations up to date. - Social history:: Smoking status: Patient denies any tobacco usage or history of. - Hospitalizations: : No recent hospitalization is reported. Screenin:47 Abuse screen: Denies threats or abuse. Nutritional screening: No deficits noted. ap3 Tuberculosis screening: No symptoms or risk factors identified. 16:00 [facility] ED Fall Risk Assessment (Adult) History of falling in the last 3 months, aa5 including since admission Yes- single mechanical fall (1 pt) Confusion or Disorientation No (0 pts) Intoxicated or Sedated No (0 pts) Impaired Gait Yes (1 pt) Mobility Assist Device Used Yes (1 pt) Altered Elimination No (0 pt) Score/Fall Risk Level 3 or more points = High Risk Oriented to surroundings, Maintained a safe environment, Educated pt \T\ family on fall prevention, incl call for assistance when getting out of bed, Assessed \T\ reinforced patient's understanding of fall precautions. 17:33 [facility] ED Fall Risk Assessment (Adult) Score/Fall Risk Level. nh2 Assessment: 15:45 General: Appears uncomfortable. Pain: Complains of pain in left hip Pain began ap3 gradually, 1 day ago. Neuro: Level of Consciousness is awake, alert, obeys commands, Oriented to person, place, time, situation, Appropriate for age Speech is normal. Cardiovascular: Patient's skin is warm and dry. Respiratory: Airway is patent Respiratory effort is even, unlabored, Respiratory pattern is regular, symmetrical. 16:00 General: Appears uncomfortable, Behavior is calm, cooperative. Pain: Complains of pain aa5 in left hip Pain currently is 10 out of 10 on a pain scale. Quality of pain is described as sharp, Pain began 1 day ago. Is continuous, Aggravated by repositioning. Neuro: Level of Consciousness is awake, alert, obeys commands, Oriented to person, place, time, situation. Cardiovascular: Patient's skin is warm and dry. Respiratory: Airway is patent Respiratory effort is even, unlabored, Respiratory pattern is regular, symmetrical. GI: No signs and/or symptoms were reported involving the gastrointestinal system. : No signs and/or symptoms were reported regarding the genitourinary system. EENT: No signs and/or symptoms were reported regarding the EENT system. Derm: Skin is pink, warm \T\ dry. surgical dressing noted to left hip that is intact. Musculoskeletal: Reports pain in left upper thigh and left hip. Vital Signs: 15:33 BP 137 / 121; Pulse 70; Resp 16; Temp 97.4; Pulse Ox 100% on R/A; Weight 69.85 kg; ll1 Height 5 ft. 4 in. ; Pain 10/10; 15:46 BP 142 / 58; Pulse 65; Resp 18; Pulse Ox 100% on R/A; ap3 17:32 BP 116 / 52; Pulse 66; Resp 18; Temp 98.2; Pulse Ox 97% on R/A; nh2 15:33 Body Mass Index 26.43 (69.85 kg, 162.56 cm) ll1 15:33 Pain Scale: Adult ll1 Rector Coma Score: 16:15 Eye Response: spontaneous(4). Motor Response: obeys commands(6). Verbal Response: aurora oriented(5). Total: 15. ED Course: 15:28 Patient arrived in ED. al6 15:34 Triage completed. ll1 15:34 Dinh Loza MD is Attending Physician. aurora 15:34 Arm band placed on Patient placed in an exam room, on a stretcher. ll1 15:47 Patient has correct armband on for positive identification. Provided Education on: fall ap3 risk education . 15:48 Yesy Valenzuela, MARY is Primary Nurse. aa5 16:00 Patient has correct armband on for positive identification. Placed in gown. Bed in low aa5 position. Call light in reach. Side rails up X2. Adult w/ patient. Pulse ox on. NIBP on. 16:00 No provider procedures requiring assistance completed. aa5 16:02 Inserted saline lock: 20 gauge in right antecubital area, using aseptic technique. aa5 Blood collected. Flushed with 10 mL NS. 16:17 Pelvis XRAY In Process Unspecified. EDMS 16:32 Wang Blake MD is Referral Physician. aurora 16:48 Hip Left 2 View XRAY In Process Unspecified. EDMS 16:48 Femur Left XRAY In Process Unspecified. EDMS 17:32 IV discontinued, intact, bleeding controlled, No redness/swelling at site. Pressure nh2 dressing applied. Administered Medications: 16:02 Drug: Ondansetron IVP 4 mg IVP once; over 2 minutes Route: IVP; Infused Over: 4 mins; aa5 Site: right antecubital; 16:22 Follow up: Response: No adverse reaction aa5 16:03 Drug: NS 0.9% IV 500 ml 500 ml IV at 1 bolus once; to be given as a bolus over 30 aa5 minutes Volume: 500 ml; Route: IV; Rate: 1 bolus; Site: right antecubital; 16:33 Follow up: IV Status: Completed infusion; IV Intake: 500ml aa5 16:03 Drug: morphine IVP or IV 4 mg IVP once over 4 mins Route: IVP; Infused Over: 4 mins; aa5 Site: right antecubital; 16:22 Follow up: Response: No adverse reaction aa5 Medication: 16:16 VIS not applicable for this client. aa5 Intake: 16:33 IV: 500ml; Total: 500ml. aa5 Outcome: 16:32 Discharge ordered by . aurora 17:32 Discharged to home via wheelchair, with significant other, nh2 17:32 Condition: stable 17:32 Discharge instructions given to patient, significant other, Instructed on discharge instructions, follow up and referral plans. Demonstrated understanding of instructions, follow-up care, 17:35 Patient left the ED. aa5 Signatures: Dispatcher [employer] EDMS Dinh Loza MD MD cha Calderon, Audri RN RN aa5 María Mcdaniel RN RN ap3 Julieta Turner RN RN ll1 Nixon Taylor Jr, RN RN nh2 Lacy [email or web address] Corrections: (The following items were deleted from the chart) 15:49 15:33 Chief complaint: Patient states: L hip pain and pop since yesterday. Hip ap3 replacement 06/23 ll1
--- NOTE | 2025-07-03 16:56 | RAD REPORT ---
Exam:Hip Left 2 View HISTORY: Left hip pain FINDINGS: No fracture or dislocation seen Left hip prosthesis in good position without evidence of loosening.
--- NOTE | 2025-07-03 16:57 | RAD REPORT ---
EXAM:Femur Left CLINICAL HISTORY: Left leg pain FINDINGS: No fracture seen No bony lesion noted No evidence of loosening of a left hip prosthesis.
[2025-07-03 21:05] VITALS: BP 116/52; TEMP 98.2; O2SAT 97
== END 2025-07-03 17:35 | disposition home or self-care (01) ==
LOC: ER 15:23
DX: M25.552 Pain in left hip (principal); Z96.642 Presence of left artificial hip joint
CPT/HCPCS: 85025; 36415; 80053; 72170; 73502; 73552; 96375; 96374; 99284; J2405; J7040